=== PATIENT | male | born 1955 | race Caucasian/White ===

== ENCOUNTER → 2018-06-01 | Outpatient (CLI) | payer OTHER ==
--- NOTE | 2018-06-01 13:04 | NUR ---
CLIENT TO TREATMENT AREA FOR BLOOD DRAW VIA PORT THEN PORT FLUSH. PORT WAS PREPPED THE 10ML BLOOD WAS ASPIRATED AND WASTED. SPECIMEN WAS OBTAINED AND SENT TO LAB. PORT WAS FLUSHED PER POLICY THEN CLIENT LEFT TREATMENT AREA IN STABLE CONDITION
[2018-06-01 14:18] LABS: CREATININE 2.35 mg/dL (0.70-1.30); POTASSIUM 3.2 mmol/L (3.5-5.1)
== END | disposition home or self-care (01) ==
LOC: LAB 12:30
DX: K74.3 Primary biliary cirrhosis (principal); N17.9 Acute kidney failure, unspecified

== ENCOUNTER → 2018-06-22 | Outpatient (CLI) | payer OTHER | END | disposition home or self-care (01) | LOC: US 11:30 | DX: M79.604 Pain in right leg (principal); M79.605 Pain in left leg; R60.0 Localized edema ==

== ENCOUNTER 2019-08-19 15:40 | Emergency (ER) | payer MEDICARE ==
[~2019-08-19] VITALS: Wt 97.5 kg
[2019-08-19] MEDS ORDERED: CEPHALEXIN500 M1 PO (16:12)
== END 2019-08-19 18:18 | disposition home or self-care (01) ==
LOC: ED 15:40
DX: S51.812A Laceration without foreign body of left forearm, initial encounter (principal); W01.0XXA Fall on same level from slipping, tripping and stumbling without subsequent striking against object, initial encounter; Y93.89 Activity, other specified; Y92.89 Other specified places as the place of occurrence of the external cause; Y99.8 Other external cause status

== ENCOUNTER 2019-08-23 21:43 | Inpatient (IN) | payer MEDICARE ==
[~2019-08-23] VITALS: Ht 175.3 cm; Wt 104.0 kg
[~2019-08-23 21:43] MED LIST: CEPHALEXIN500 M1 PO
[2019-08-23 21:44] VITALS: BP 150/70
[2019-08-23 22:07] LABS: EOS # 0.1 10*3/uL (0.0-0.4); EOS % 3.9 % (1.0-4.0); HEMATOCRIT 37.7 % (42.0-52.0); HEMOGLOBIN 12.4 g/dl (14.0-18.0); LYMPH # 0.3 10*3/uL (1.3-4.4); LYMPH % 8.7 % (27.0-41.0); MEAN CELL VOLUME 96.7 fl (80.0-94.0); MEAN CORPUSCULAR HGB 31.8 pg (27.0-31.0); MEAN CORPUSCULAR HGB CONC 32.9 g/dl (33.0-37.0); MEAN PLATELET VOLUME 10.7 fl (9.6-12.3); MONO # 0.4 10*3/uL (0.1-1.0); MONO % 12.1 % (3.0-9.0); NEUT # 2.7 10*3/uL (2.3-7.9); PLATELET COUNT AUTOMATED 65 10*3/uL (130-400); RED CELL DISTRI WIDTH 14.1 % (0-14.5); WHITE BLOOD COUNT 3.6 10*3/uL (4.8-10.8)
[2019-08-23 22:17] LABS: ACT PARTIAL THROMBO TIME 26.2 SECONDS (20.0-32.1); INTERNATIONAL NORM RATIO 0.9 (2.0-3.5)
[2019-08-23 22:21] LABS: ALBUMIN 2.9 gm/dl (3.1-4.5); ALKALINE PHOSPHATASE 294 U/L (45-117); BUN 6 mg/dl (7-24); CHLORIDE 112 mmol/L (98-107); CREATININE 0.96 mg/dL (0.70-1.30); POTASSIUM 4.1 mmol/L (3.5-5.1); SGOT/AST 25 IU/L (3-35); SGPT/ALT 33 U/L (12-78); SODIUM 141 mmol/L (136-145); TOTAL PROTEIN 6.9 gm/dL (6.4-8.2)
[2019-08-23 22:24] LABS: TROPONIN I < 0.015 ng/ml (<0.045)
--- NOTE | 2019-08-23 22:25 | NUR ---
CT HEAD SCAN ORDER DISCUSSED WITH ATTENDING MD, STATES WILL OBTAIN LABS AND ABD CT FOR NOW AND RE EVALUATE NEED. NO NEW ORDERS AT THIS TIME. WILL CONTINUE LORRI MONITOR PT.
[2019-08-23 22:30] VITALS: BP 140/80
[2019-08-23 22:40] LABS: LIPASE 477 U/L (73-393)
[2019-08-23 23:08] LABS: BILIRUBIN NEGATIVE (NEGATIVE); BLOOD NEGATIVE (NEGATIVE); CLARITY CLEAR (CLEAR); COLOR YELLOW (YELLOW); GLUCOSE NEGATIVE (NEGATIVE); KETONE NEGATIVE (NEGATIVE); LEUKO ESTERASE NEGATIVE (NEGATIVE); NITRITE NEGATIVE (NEGATIVE); PH 6.5 (5.0-9.0); SPECIFIC GRAVITY 1.015 (1.005-1.030); UROBILINOGEN 0.2 E.U./dl (0.2-1.0)
[2019-08-23 23:12] LABS: RBC 0-2 rbc/hpf (0-2); WBC 0-2 wbc/hpf (0-5)
[2019-08-23 23:59] VITALS: BP 140/60
--- NOTE | 2019-08-24 00:28 | NUR ---
PT CONTINUES TO REST ON CART, TALKING ON CELL PHONE. CALL LIGHT IN REACH. DENIES UNMENT NEEDS. WILL CONTINUE TO MONITOR.
--- NOTE | 2019-08-24 00:55 | NUR ---
ASSISTED PT TO USE URINAL, 350ML OUTPUT. PT CONTINUES RESTING ON CART. CALL LIGHT IN REACH. ALERT/ORIENTED, UNLABORED AND REGULAR RESPIRATIONS. PT DENIES UNMET NEEDS. WILL CONTINUE TO MONITOR.
--- NOTE | 2019-08-24 01:13 | NUR ---
PROVIDED PT WITH ICE CHIPS, OK PER .
--- NOTE | 2019-08-24 01:55 | NUR ---
A 64, admitted to , under the services of JORGE Waddell DO with a diagnosis of ACUTE CROHNS, ABD PAIN AND CP. Chief complaint is SYMPTOMS STARTED WEDNESDAY WITH ABD PAIN, C/P NECK PAIN. LEFT NECK AND ARM PAIN. BILAT ARM WEAKNESS. FAMILY REPORTED DECREASED LOC. C/O H/A. Patient arrived via stretcher from ER. Monitor applied. Initial assessment completed. Vital signs taken and recorded. JORGE WADDELL DO notified of admission to the . Orders received. See assessment for past medical history, medications and allergies. Patient and/or family oriented to unit. [facility] visitation policy reviewed. Clothing/patient valuable form completed. LUANN PRINCE
[2019-08-24 01:56] VITALS: BP 135/62
--- NOTE | 2019-08-24 02:01 | NUR ---
PATIENT HAS SHUNT IN LIVER FROM CHRONIC USE OF BIPOLAR MEDICATIONS PER PT. HE GOES TO [facility] EVERY 6-8 WEEKS TO HAVE IT CHANGED. PATIENT DOES OWN DRESSING CHANGES TO THAT SITE. PT. WALKS WITH CANE.
--- NOTE | 2019-08-24 02:25 | NUR ---
BUBBA OLMOS [id number] Please refer to the physician's history and physical for past medical history, comorbid conditions, and allergies. Diagnosis: ACUTE CHRON'S DISEASE ABDOMINAL PAIN CHEST PAIN Micah Score: , WOUND DESCRIPTIONS: Wound Number: 1 Location of the wound: left forearm proximal Type of wound: laceration Thickness: Partial Size: 1.5cm x 7.5cm x <0.1cm Tunneling: none Undermining: none Sinus Tract: none Presence of Exudate: none Amount: None Color: Red Odor: None Periwound Skin Appearance: ecchymotic Wound edges: approximated with 11 sutures Pain (associated with wound): none at time of assessment How does patient state this happened? pt stated that he fell on a garbage can on wednesday Wound Number: 2 Location of the wound: left forearm distal Type of wound: laceration Thickness: Partial Size: 4.3cm x 1.0cm x <0.1cm Tunneling: none Undermining: none Sinus Tract: none Presence of Exudate: none Amount: None Color: Red Odor: None Periwound Skin Appearance: ecchymotic Wound edges: approximated Pain (associated with wound): none at time of assessment How does patient state this happened? pt stated that he fell on a garbage can on wednesday Patient has drain noted to right lower quadrant and states he changes the dressing daily and he is due to have it changed on September 18, 2019. Surface the patient is resting on: Isoflex SKIN PREVENTION RECOMMENDATION: 1. Pressure redistribution support surface as appropriate 2. Elevate heels 3. Remove boots/TEDS every shift and reapply 4. Head of bed 30 degrees as tolerated 5. Assess nutrition and hydration 6. Manage moisture 7. Avoid the use of containment devices while in bed 8. Use absorptive products on surfaces limit layers of linens on bed 9. Turn and reposition every 1-2 hours in bed and every 1 hour in chair as tolerated 10. Weight shifts every 15 minutes while up in chair 11. Offloading with pillows or device to keep heels elevated off bed 12. Monitor skin at least every shift 13. Inspect under medical devices twice a day WOUND TREATMENT RECOMMENDATIONS: Cleanse right lower quadrant drain with nss and apply non-woven gauze around site daily and prn for soiling. Cleanse left forearm proximal and left forearm distal with nss and apply adaptic and cover with non adherent daily and prn for soiling.
[2019-08-24] MEDS ORDERED: VITAMIN D32000 UNI2 PO (02:33)
[2019-08-24] MEDS ORDERED: ABILIFY15 MG PO (02:33)
[2019-08-24] MEDS ORDERED: LIPITOR40 MG PO (02:33)
[2019-08-24] MEDS ORDERED: LEXAPRO10 MG PO (02:34)
[2019-08-24] MEDS ORDERED: ATARAX,VISTARIL10 MG PO (02:35)
[2019-08-24] MEDS ORDERED: SLOW RELEASE I142 MG PO (02:38)
[2019-08-24] MEDS ORDERED: MESALAMINE E0.375 GM PO (02:40)
[2019-08-24] MEDS ORDERED: MECLIZINE HYD12.5 MG PO (02:40)
[2019-08-24] MEDS ORDERED: ZUPLENZ4 M1 PO (02:41)
[2019-08-24] MEDS ORDERED: OMEPRAZOLE40 MG PO (02:41)
[2019-08-24] MEDS ORDERED: REMERON15 M2 PO (02:41)
[2019-08-24] MEDS ORDERED: MYSOLINE50 M2 PO (02:42)
[2019-08-24] MEDS ORDERED: URSO FORTE500 MG PO (02:43)
[2019-08-24] MEDS ORDERED: SEPTDS PO (02:43)
[2019-08-24] MEDS ORDERED: VITAMIN B121000 MC1 PO (02:44)
[2019-08-24 03:56] LABS: EOS # 0.1 10*3/uL (0.0-0.4); EOS % 3.9 % (1.0-4.0); HEMATOCRIT 36.6 % (42.0-52.0); HEMOGLOBIN 12.1 g/dl (14.0-18.0); LYMPH # 0.4 10*3/uL (1.3-4.4); LYMPH % 13.3 % (27.0-41.0); MEAN CELL VOLUME 96.1 fl (80.0-94.0); MEAN CORPUSCULAR HGB 31.8 pg (27.0-31.0); MEAN CORPUSCULAR HGB CONC 33.1 g/dl (33.0-37.0); MEAN PLATELET VOLUME 10.6 fl (9.6-12.3); MONO # 0.4 10*3/uL (0.1-1.0); MONO % 12.9 % (3.0-9.0); NEUT # 2.2 10*3/uL (2.3-7.9); NEUT % 69.6 % (47.0-73.0); PLATELET COUNT AUTOMATED 61 10*3/uL (130-400); RED BLOOD COUNT 3.81 10*6/uL (4.50-5.90); WHITE BLOOD COUNT 3.1 10*3/uL (4.8-10.8)
[2019-08-24 04:09] LABS: ALBUMIN 2.8 gm/dl (3.1-4.5); ALKALINE PHOSPHATASE 282 U/L (45-117); BUN 6 mg/dl (7-24); CHLORIDE 111 mmol/L (98-107); CHOLESTEROL 134 mg/dL (<200); CREATININE 0.93 mg/dL (0.70-1.30); HDL CHOLESTEROL 53 mg/dl (40-60); LDL CHOLESTEROL 61 mg/dL (9-159); PHOSPHOROUS 3.2 mg/dL (2.5-4.9); POTASSIUM 3.9 mmol/L (3.5-5.1); SGOT/AST 23 IU/L (3-35); SGPT/ALT 30 U/L (12-78); SODIUM 142 mmol/L (136-145); TOTAL PROTEIN 6.8 gm/dL (6.4-8.2); TRIGLYCERIDES 100 mg/dl (<150); VLDL CHOLESTEROL 20 mg/dL (6-40)
--- NOTE | 2019-08-24 05:09 | NUR ---
NORCO GIVEN PER ORDER FOR PAIN IN RIGHT CHEST ABD AREA. RATED "7"
--- NOTE | 2019-08-24 06:00 | NUR ---
SAIMA HELPING A LITTLE BIT FOR PAIN PER PT.
[2019-08-24 08:04] VITALS: BP 110/58
--- NOTE | 2019-08-24 10:52 | NUR ---
Disassembler Product in to talk to patient. Patient states lives at [facility] with EX . There are NO steps in the home. Physician: NONE AT THIS TIME [facility] Home health services: NONE Patient's level of ADLs: INDEPENDENT Patient has working utilities: YES DME: [facility] Follow-up physician's appointment after d/c: STATES HE HAD APPOINTMENT WITH CLINIC IN [place] BUT IT WAS CANCELLED DUE TO HERRERA OUTBREAK AND RESCHEDULED FOR OCTOBER. STATES HE IS RUNNING LOW ON HIS MEDS Does patient want to access PORTAL?: NO Discharge plan PT LIVES AT HOME WITH HIS EX AND IS INDEPENDENT IN HIS CARE. DENIES THAT HE WILL HAVE NEEDS AT HOME AFTER DISCHARGE EXCEPT GETTING A NEW PCP AND GETTING MEDS. DOCTORS INFORMED. PLAN IS TO RETURN HOME WITH EXWIFE WHEN MEDICALLY STABLE. WILL CONTINUE TO FOLLOW. STATES HE WILL HAVE A RIDE HOME ON DISCHARGE. DENVER MARQUEZ
[2019-08-24 12:00] VITALS: BP 144/49
--- NOTE | 2019-08-24 15:52 | NUR ---
PT COMLAINS OF A HEAD ACHE. PRN TYLENOL PO IS GIVEN AT THIS TIME. CALL LIGHT KYLE HUFFMAN, WILL CONTINUE TO MONITOR
[2019-08-24 16:00] VITALS: BP 110/60
[2019-08-24 20:00] VITALS: BP 139/45
[2019-08-25] VITALS: BP 118/40
[2019-08-25 06:14] LABS: HEMATOCRIT 37.4 % (42.0-52.0); HEMOGLOBIN 12.3 g/dl (14.0-18.0); MEAN CELL VOLUME 96.4 fl (80.0-94.0); MEAN CORPUSCULAR HGB 31.7 pg (27.0-31.0); MEAN CORPUSCULAR HGB CONC 32.9 g/dl (33.0-37.0); MEAN PLATELET VOLUME 11.1 fl (9.6-12.3); PLATELET COUNT AUTOMATED 60 10*3/uL (130-400); RED BLOOD COUNT 3.88 10*6/uL (4.50-5.90); RED CELL DISTRI WIDTH 13.9 % (0-14.5); WHITE BLOOD COUNT 4.1 10*3/uL (4.8-10.8)
[2019-08-25 06:17] LABS: BUN 9 mg/dl (7-24); CHLORIDE 108 mmol/L (98-107); CREATININE 1.01 mg/dL (0.70-1.30); POTASSIUM 4.4 mmol/L (3.5-5.1); SODIUM 141 mmol/L (136-145)
--- NOTE | 2019-08-25 07:02 | NUR ---
TYLENOL GIVEN PER ORDER FOR FRONTAL HEADACHE PAIN RATED "8". SEE MAR.
[2019-08-25 07:39] LABS: PLATELET SUFFICIENCY LOW (NORMAL); ROULEAUX SLIGHT; TOTAL CELLS COUNTED 100 #CELLS
[2019-08-25 08:00] VITALS: BP 130/47
[2019-08-25 12:00] VITALS: BP 126/43
[2019-08-25] MEDS ORDERED: ABILIFY15 MG PO (12:53)
[2019-08-25] MEDS ORDERED: OMEPRAZOLE40 MG PO (12:53)
[2019-08-25] MEDS ORDERED: LEXAPRO10 MG PO (12:53)
[2019-08-25] MEDS ORDERED: MYSOLINE50 M2 PO (12:53)
[2019-08-25] MEDS ORDERED: URSO FORTE500 MG PO (12:53)
[2019-08-25] MEDS ORDERED: LIPITOR40 MG PO (12:53)
[2019-08-25] MEDS ORDERED: REMERON15 M2 PO (12:53)
[2019-08-25] MEDS ORDERED: VITAMIN B121000 MC1 PO (12:53)
[2019-08-25] MEDS ORDERED: ATARAX,VISTARIL10 MG PO (12:53)
[2019-08-25] MEDS ORDERED: ZUPLENZ4 M1 PO (12:53)
[2019-08-25] MEDS ORDERED: VITAMIN D32000 UNI2 PO (12:53)
[2019-08-25] MEDS ORDERED: SLOW RELEASE I142 MG PO (12:53)
[2019-08-25] MEDS ORDERED: MECLIZINE HYD12.5 MG PO (12:53)
--- NOTE | 2019-08-25 15:28 | NUR ---
Medicated with tylenol per prn order for complaints of headache.
[2019-08-25 16:00] VITALS: BP 134/52
--- NOTE | 2019-08-25 16:30 | NUR ---
States that tylenol effective for headache.
--- NOTE | 2019-08-25 19:50 | NUR ---
PATIENT IS AAOX3, RESTING IN BED WITH EASY AND REGULAR RESPERS ON ROOM AIR. ASSESSMENT IS COMPLETE WITH NO S/S OF DISTRESS NOTED AT THIS TIME. BED IS LOW, LOCKED, AND CALL LIGHT IS WITHIN REACH. PATIENT C/O PAIN, PRN NORCO GIVEN PER ORDER. WILL MONITOR EFFECT.
[2019-08-25 20:00] VITALS: BP 143/55
[2019-08-25 21:30] VITALS: BP 142/48
--- NOTE | 2019-08-25 22:30 | NUR ---
PRN NORCO EFFECTIVE PER PATIENT. CALL LIGHT IS WITHIN REACH.
[2019-08-26] VITALS: BP 136/56
--- NOTE | 2019-08-26 04:36 | NUR ---
CHART CHECK COMPLETE.
--- NOTE | 2019-08-26 05:05 | NUR ---
PRN TYLENOL GIVEN FOR C/O HEADACHE. PATIENT TOLERATED WELL. CALL LIGHT IS WITHIN REACH, WILL MONITOR EFFECT.
[2019-08-26 05:41] LABS: ALKALINE PHOSPHATASE 264 U/L (45-117); BUN 14 mg/dl (7-24); CHLORIDE 108 mmol/L (98-107); CREATININE 0.94 mg/dL (0.70-1.30); POTASSIUM 4.4 mmol/L (3.5-5.1); SGOT/AST 19 IU/L (3-35); SGPT/ALT 32 U/L (12-78); SODIUM 138 mmol/L (136-145)
[2019-08-26 06:13] LABS: HEMATOCRIT 38.9 % (42.0-52.0); HEMOGLOBIN 12.6 g/dl (14.0-18.0); MEAN CELL VOLUME 96.3 fl (80.0-94.0); MEAN CORPUSCULAR HGB 31.2 pg (27.0-31.0); MEAN CORPUSCULAR HGB CONC 32.4 g/dl (33.0-37.0); MEAN PLATELET VOLUME 11.2 fl (9.6-12.3); PLATELET COUNT AUTOMATED 60 10*3/uL (130-400); RED BLOOD COUNT 4.04 10*6/uL (4.50-5.90); RED CELL DISTRI WIDTH 13.8 % (0-14.5); WHITE BLOOD COUNT 6.8 10*3/uL (4.8-10.8)
[2019-08-26 07:18] LABS: PLATELET SUFFICIENCY LOW (NORMAL); TOTAL CELLS COUNTED 100 #CELLS
[2019-08-26 08:00] VITALS: BP 132/50
--- NOTE | 2019-08-26 08:30 | NUR ---
Marlen Llanes in to see pt. States pt can have regular diet and if tolerates may dc after lunch.
[2019-08-26 12:00] VITALS: BP 118/46
[2019-08-26 16:00] VITALS: BP 114/53
[2019-08-26 20:00] VITALS: BP 124/44
[2019-08-27] VITALS: BP 128/53
--- NOTE | 2019-08-27 02:42 | NUR ---
DR. JOHNSON CONTACTED IN REGARDS TO PATIENT HR BETWEEN 38-45 WITH SOME COUPLETS. NO NEW ORDERS AT THIS TIME.
[2019-08-27] MEDS ORDERED: MESALAMINE E0.375 GM PO (08:00)
[2019-08-27] MEDS ORDERED: DOXYCYCLINE100 M3 PO (08:00)
[2019-08-27] MEDS ORDERED: PREDNISONE10 MG PO (08:00)
--- NOTE | 2019-08-27 09:42 | NUR ---
PT DID NOT WANT PICTURES TAKEN OF WOUNDS. DID NOT WANT DRESSING CHANGED TO DRAIN AREA. AWARE SUTURES TO BE REMOVED AT PRIMARY CARE PHYSICIAN. DISCHARGE INSTRUCTIONS EXPLAINED, UNDERSTOOD. IV REMOVED, TELE REMOVED. PT WAITING FOR FAMILY TO ARRIVE FOR DISHCARGE
--- NOTE | 2019-08-27 10:17 | NUR ---
DISCHARGE VIA WHEELCHAIR
== END 2019-08-27 10:17 | disposition home or self-care (01) | DRG 386 ==
LOC: ED 21:43 → 4E 08-24 01:16 → EDHOLD 08-24 01:16 → 4E 08-24 01:36
PROVIDERS: Emergency Medicine; Family Medicine; Internal Medicine; Registered Nurse; ADMIT Internal Medicine
DX: K50.911 Crohn's disease, unspecified, with rectal bleeding (principal); D61.818 Other pancytopenia; E72.20 Disorder of urea cycle metabolism, unspecified; K76.6 Portal hypertension; E87.8 Other disorders of electrolyte and fluid balance, not elsewhere classified; K21.9 Gastro-esophageal reflux disease without esophagitis; K74.60 Unspecified cirrhosis of liver; F31.9 Bipolar disorder, unspecified; I25.10 Atherosclerotic heart disease of native coronary artery without angina pectoris; S51.812A Laceration without foreign body of left forearm, initial encounter; X58.XXXA Exposure to other specified factors, initial encounter; Y93.89 Activity, other specified; Y92.89 Other specified places as the place of occurrence of the external cause; Y99.8 Other external cause status; Z95.5 Presence of coronary angioplasty implant and graft; Z79.899 Other long term (current) drug therapy; Z87.891 Personal history of nicotine dependence; Z80.0 Family history of malignant neoplasm of digestive organs

== ENCOUNTER 2019-09-01 09:23 | Emergency (ER) | payer MEDICARE ==
[~2019-09-01] VITALS: Ht 175.2 cm; Wt 103.9 kg
[~2019-09-01 09:23] MED LIST changes: +ABILIFY15 MG PO; +ATARAX,VISTARIL10 MG PO; +DOXYCYCLINE100 M3 PO; +LEXAPRO10 MG PO; +LIPITOR40 MG PO; +MECLIZINE HYD12.5 MG PO; +MESALAMINE E0.375 GM PO; +MYSOLINE50 M2 PO; +OMEPRAZOLE40 MG PO; +PREDNISONE10 MG PO; +REMERON15 M2 PO; +SEPTDS PO; +SLOW RELEASE I142 MG PO; +URSO FORTE500 MG PO; +VITAMIN B121000 MC1 PO; +VITAMIN D32000 UNI2 PO; +ZUPLENZ4 M1 PO
[2019-09-01 10:02] LABS: EOS % 0.3 % (1.0-4.0); HEMATOCRIT 42.7 % (42.0-52.0); LYMPH # 0.4 10*3/uL (1.3-4.4); LYMPH % 5.5 % (27.0-41.0); MEAN CELL VOLUME 95.7 fl (80.0-94.0); MEAN CORPUSCULAR HGB 31.4 pg (27.0-31.0); MEAN CORPUSCULAR HGB CONC 32.8 g/dl (33.0-37.0); MEAN PLATELET VOLUME 11.8 fl (9.6-12.3); MONO # 0.4 10*3/uL (0.1-1.0); MONO % 5.8 % (3.0-9.0); NEUT # 5.9 10*3/uL (2.3-7.9); NEUT % 87.7 % (47.0-73.0); PLATELET COUNT AUTOMATED 63 10*3/uL (130-400); RED BLOOD COUNT 4.46 10*6/uL (4.50-5.90); RED CELL DISTRI WIDTH 13.9 % (0-14.5); WHITE BLOOD COUNT 6.7 10*3/uL (4.8-10.8)
[2019-09-01 10:10] LABS: ACT PARTIAL THROMBO TIME 23.4 SECONDS (20.0-32.1)
[2019-09-01 10:17] LABS: ALKALINE PHOSPHATASE 229 U/L (45-117); BUN 15 mg/dl (7-24); CHLORIDE 107 mmol/L (98-107); CREATININE 1.02 mg/dL (0.70-1.30); POTASSIUM 3.9 mmol/L (3.5-5.1); SGOT/AST 33 IU/L (3-35); SGPT/ALT 59 U/L (12-78); SODIUM 139 mmol/L (136-145); TOTAL PROTEIN 6.9 gm/dL (6.4-8.2)
[2019-09-01] MEDS ORDERED: PROBIOTIC1 EAC4 PO (11:14)
[2019-09-01] MEDS ORDERED: CLEOCIN HCL150 MG PO (11:14)
== END 2019-09-01 11:20 | disposition home or self-care (01) ==
LOC: ED 09:23
PROVIDERS: Nurse Practitioner Family
DX: S51.812D Laceration without foreign body of left forearm, subsequent encounter (principal); L03.90 Cellulitis, unspecified; F31.9 Bipolar disorder, unspecified; Z79.899 Other long term (current) drug therapy; Z79.2 Long term (current) use of antibiotics; W01.0XXD Fall on same level from slipping, tripping and stumbling without subsequent striking against object, subsequent encounter

== ENCOUNTER 2021-08-28 18:39 | Emergency (ER) | payer MEDICARE ==
[~2021-08-28] VITALS: Wt 108.9 kg
[~2021-08-28 18:39] MED LIST changes: +CLEOCIN HCL150 MG PO; +PROBIOTIC1 EAC4 PO
[2021-08-28 19:21] LABS: HEMATOCRIT 34.9 % (42.0-52.0); MEAN CELL VOLUME 95.1 fl (80.0-94.0); MEAN CORPUSCULAR HGB 31.6 pg (27.0-31.0); MEAN CORPUSCULAR HGB CONC 33.2 g/dl (33.0-37.0); MEAN PLATELET VOLUME 11.1 fl (9.6-12.3); PLATELET COUNT AUTOMATED 31 10*3/uL (130-400); RED BLOOD COUNT 3.67 10*6/uL (4.50-5.90); RED CELL DISTRI WIDTH 14.6 % (0-14.5); WHITE BLOOD COUNT 4.1 10*3/uL (4.8-10.8)
[2021-08-28 19:29] LABS: MANUAL DIFF REFLEX YES
[2021-08-28 19:43] LABS: ALKALINE PHOSPHATASE 442 U/L (45-117); BUN 13 mg/dl (7-24); CHLORIDE 110 mmol/L (98-107); LIPASE 148 U/L (73-393); POTASSIUM 3.6 mmol/L (3.5-5.1); SGOT/AST 126 IU/L (3-35); SGPT/ALT 190 U/L (12-78); SODIUM 141 mmol/L (136-145); TOTAL PROTEIN 5.8 gm/dL (6.4-8.2)
[2021-08-28 19:51] LABS: BURR CELLS FEW; OVALOCYTES FEW; PLATELET SUFFICIENCY LOW (NORMAL); TOTAL CELLS COUNTED 100 #CELLS
== END 2021-08-28 22:22 | disposition home or self-care (01) ==
LOC: ED 18:39
PROVIDERS: Internal Medicine
DX: K70.31 Alcoholic cirrhosis of liver with ascites (principal); D61.818 Other pancytopenia; E46 Unspecified protein-calorie malnutrition; R94.5 Abnormal results of liver function studies; R10.84 Generalized abdominal pain; Z87.891 Personal history of nicotine dependence; Z98.890 Other specified postprocedural states; Z79.899 Other long term (current) drug therapy